=== PATIENT | female | born 1955 | race Caucasian/White ===

== ENCOUNTER 2024-03-31 19:13 | Emergency (ER) | payer MEDICARE ==
[2024-03-31] MEDS: Ibuprofen 600 MG Tab PO ONE (22:53)
== END 2024-03-31 23:16 | disposition home or self-care (01) ==
LOC: JP.ED 19:13
DX: S09.90XA Unspecified injury of head, initial encounter (principal); W19.XXXA Unspecified fall, initial encounter; Y92.007 Garden or yard of unspecified non-institutional (private) residence as the place of occurrence of the external cause
CPT/HCPCS: 70450; 99284; A9270